=== PATIENT | male | born 1995 | race Asian ===

== ENCOUNTER 2016-10-02 10:42 | Emergency (ER) | payer OTHER ==
[~2016-10-02] VITALS: Ht 172.7 cm; Wt 99.8 kg
[2016-10-02 10:56] VITALS: BP 137/81; TEMP 98.6
== END 2016-10-02 11:26 | disposition home or self-care (01) ==
LOC: ED 10:42
DX: K02.9 Dental caries, unspecified (principal); R68.84 Jaw pain
CPT/HCPCS: 96372; 99283; J0696; J1885

== ENCOUNTER 2016-12-04 10:53 | Emergency (ER) | payer OTHER ==
[~2016-12-04] VITALS: Ht 172.7 cm; Wt 97.5 kg
[2016-12-04 10:55] VITALS: TEMP 98
[2016-12-04 11:23] LABS: PLATELET COUNT 201 K/uL (142-355)
[2016-12-04 11:36] LABS: POTASSIUM 4.4 mmol/L (3.6-5.2); SODIUM 135 mmol/L (136-145)
[2016-12-04 12:49] VITALS: BP 130/64
== END 2016-12-04 12:46 | disposition home or self-care (01) ==
LOC: ED 10:53
DX: K52.9 Noninfective gastroenteritis and colitis, unspecified (principal); R74.0 Nonspecific elevation of levels of transaminase and lactic acid dehydrogenase [LDH]
CPT/HCPCS: 36415; 80053; 85027; 86318; 96360; 96361; 99284

== ENCOUNTER 2017-06-17 17:32 | Emergency (ER) | payer OTHER ==
[~2017-06-17] VITALS: Ht 172.7 cm; Wt 104.3 kg
[2017-06-17 17:49] VITALS: BP 154/79; TEMP 97.8
[2017-06-17 18:24] LABS: PLATELET COUNT 190 K/uL (142-355)
== END 2017-06-17 22:04 | disposition left against medical advice (07) ==
LOC: ED 17:32
DX: R10.9 Unspecified abdominal pain (principal)
CPT/HCPCS: 36415; 81000; 85027; 99283

== ENCOUNTER 2017-11-26 07:33 | Emergency (ER) | payer OTHER ==
[~2017-11-26] VITALS: Ht 172.7 cm; Wt 99.8 kg
[2017-11-26 07:52] VITALS: BP 138/68; TEMP 97.1
== END 2017-11-26 08:03 | disposition home or self-care (01) ==
LOC: ED 07:33
DX: K08.89 Other specified disorders of teeth and supporting structures (principal)
CPT/HCPCS: 99281

== ENCOUNTER 2018-05-19 08:49 | Emergency (ER) | payer OTHER ==
[~2018-05-19] VITALS: Ht 172.7 cm; Wt 99.8 kg
[2018-05-19 08:53] VITALS: TEMP 97.9
[2018-05-19 10:06] LABS: PLATELET COUNT 214 K/uL (142-355)
[2018-05-19 12:15] VITALS: BP 145/92
== END 2018-05-19 12:25 | disposition home or self-care (01) ==
LOC: ED 08:49
PROVIDERS: Emergency Medicine
DX: R10.9 Unspecified abdominal pain (principal)
CPT/HCPCS: 36415; 80053; 82150; 83690; 85027; 99283; J1885; Q9963

== ENCOUNTER 2018-11-05 09:54 | Emergency (ER) | payer OTHER ==
[~2018-11-05] VITALS: Ht 172.7 cm; Wt 99.8 kg
[2018-11-05 12:32] VITALS: BP 156/78; TEMP 97.7
== END 2018-11-05 12:32 | disposition home or self-care (01) ==
LOC: ED 09:54
DX: J06.9 Acute upper respiratory infection, unspecified (principal)
CPT/HCPCS: 87502; 87651; 99283

== ENCOUNTER 2019-07-19 10:32 | Emergency (ER) | payer OTHER ==
[~2019-07-19] VITALS: Ht 170.2 cm; Wt 104.3 kg
[2019-07-19 10:37] VITALS: BP 164/64; TEMP 97.5
[2019-07-19 11:28] LABS: PLATELET COUNT 202 K/uL (142-355)
[2019-07-19 11:33] LABS: POTASSIUM 3.9 mmol/L (3.6-5.2)
== END 2019-07-19 11:35 | disposition home or self-care (01) ==
LOC: ED 10:32
PROVIDERS: Family Medicine
DX: R10.84 Generalized abdominal pain (principal); R11.2 Nausea with vomiting, unspecified
CPT/HCPCS: 80053; 80320; 81000; 82150; 83690; 85027; 96374; 99284; J2405

== ENCOUNTER 2019-07-19 16:05 | Emergency (ER) | payer OTHER ==
[~2019-07-19] VITALS: Ht 170.2 cm; Wt 104.3 kg
[2019-07-19 18:50] VITALS: BP 157/85; TEMP 98
== END 2019-07-19 18:50 | disposition home or self-care (01) ==
LOC: ED 16:05
DX: K29.70 Gastritis, unspecified, without bleeding (principal); K21.9 Gastro-esophageal reflux disease without esophagitis
CPT/HCPCS: 80307; 99283

== ENCOUNTER 2020-04-12 09:28 | Emergency (ER) | payer OTHER ==
[~2020-04-12] VITALS: Ht 172.7 cm; Wt 102.1 kg
[2020-04-12 09:39] VITALS: TEMP 98.7
[2020-04-12 10:26] VITALS: BP 115/76
== END 2020-04-12 10:26 | disposition home or self-care (01) ==
LOC: ED 09:28
DX: R51 Headache (principal); E66.8 Other obesity
CPT/HCPCS: 96372; 99283; J1885; J2405

== ENCOUNTER 2021-12-25 12:57 | Emergency (ER) | payer OTHER ==
[~2021-12-25] VITALS: Ht 172.7 cm; Wt 102.1 kg
[2021-12-25] MEDS ORDERED: AMOX500C85 PO (14:57)
[2021-12-25] MEDS ORDERED: MOTRIN IB200 M1 PO (14:57)
[2021-12-25 15:20] VITALS: BP 131/70; TEMP 97.5
== END 2021-12-25 15:20 | disposition home or self-care (01) ==
LOC: ED 12:57
DX: S91.331A Puncture wound without foreign body, right foot, initial encounter (principal); W45.0XXA Nail entering through skin, initial encounter; Y92.89 Other specified places as the place of occurrence of the external cause
CPT/HCPCS: 90471; 90715; 96372; 99283; J0690; J1885

== ENCOUNTER 2022-01-08 05:39 | Emergency (ER) | payer OTHER ==
[~2022-01-08] VITALS: Ht 172.7 cm; Wt 102.1 kg
[~2022-01-08 05:39] MED LIST: AMOX500C85 PO; MOTRIN IB200 M1 PO
[2022-01-08 05:50] VITALS: TEMP 98.2
[2022-01-08] MEDS ORDERED: CLINDAMYCIN HY300 MG PO (07:44)
[2022-01-08] MEDS ORDERED: 904272561 PO (07:44)
[2022-01-08 08:06] VITALS: BP 130/74
== END 2022-01-08 08:07 | disposition home or self-care (01) ==
LOC: ED 05:39
DX: L03.115 Cellulitis of right lower limb (principal); S91.331D Puncture wound without foreign body, right foot, subsequent encounter; W45.0XXD Nail entering through skin, subsequent encounter; Y92.89 Other specified places as the place of occurrence of the external cause
CPT/HCPCS: 96372; 99283; J1885